=== PATIENT | female | born 1950 | race Caucasian/White ===

== ENCOUNTER 2022-04-20 10:08 | Outpatient (CLI) | payer MEDICARE, BC, SELFPAY | END 2022-04-20 10:09 | disposition home or self-care (01) | LOC: INJ CL 10:11 | PROVIDERS: PCP Family Medicine; Visit Provider Family Medicine | DX: M54.16 Radiculopathy, lumbar region (principal); M51.36 Other intervertebral disc degeneration, lumbar region | CPT/HCPCS: 62323; J0702; Q9966 ==

== ENCOUNTER 2022-05-10 12:09 | Outpatient (CLI) | payer MEDICARE, BC, SELFPAY | END 2022-05-10 12:10 | disposition home or self-care (01) | LOC: OP CLINIC 12:11 | PROVIDERS: PCP Family Medicine; Visit Provider Internal Medicine Gastroenterology | DX: R19.5 Other fecal abnormalities (principal); K63.5 Polyp of colon; K57.30 Diverticulosis of large intestine without perforation or abscess without bleeding | CPT/HCPCS: 45380; 88305; J2250; J3010 ==

== ENCOUNTER 2022-10-05 09:35 | Outpatient (CLI) | payer MEDICARE, BC, SELFPAY | END 2022-10-05 09:36 | disposition home or self-care (01) | LOC: INJ CL 09:37 | PROVIDERS: PCP Family Medicine; Visit Provider Family Medicine | DX: M54.16 Radiculopathy, lumbar region (principal); M51.36 Other intervertebral disc degeneration, lumbar region | CPT/HCPCS: 62323; J0702; Q9966 ==

== ENCOUNTER 2023-02-08 10:15 | Outpatient (CLI) | payer MEDICARE, BC, SELFPAY | END 2023-02-08 10:16 | disposition home or self-care (01) | LOC: INJ CL 10:16 | PROVIDERS: PCP Student in an Organized Health Care Education/Training Program; Visit Provider Family Medicine | DX: M16.11 Unilateral primary osteoarthritis, right hip (principal); M25.551 Pain in right hip | CPT/HCPCS: 20610; 77002; J0702; Q9966 ==

== ENCOUNTER 2023-03-14 06:34 | Outpatient (CLI) | payer MEDICARE, BC, SELFPAY ==
--- NOTE | 2023-03-14 07:37 | W.ANESCHARGE ---
Anesthesia Charges Start Date/Time Anesthesia Start Date: 03/14/23 Anesthesia Start Time: 07:11 Stop Date/Time Anesthesia Stop Date: 03/14/23 Anesthesia Stop Time: 07:33 Summary Extremes of Age - Over 70 or under 1: [employer]
--- NOTE | 2023-03-14 09:45 | W.ANESCHARGE ---
Anesthesia Charges Start Date/Time Anesthesia Start Date: 03/14/23 Anesthesia Start Time: 07:11 Stop Date/Time Anesthesia Stop Date: 03/14/23 Anesthesia Stop Time: 07:33 Summary Extremes of Age - Over 70 or under 1: MDA
== END 2023-03-14 06:35 | disposition home or self-care (01) ==
LOC: OP CLINIC 06:35
PROVIDERS: PCP Student in an Organized Health Care Education/Training Program; Visit Provider Internal Medicine Gastroenterology
DX: R10.13 Epigastric pain (principal); K21.9 Gastro-esophageal reflux disease without esophagitis; K31.89 Other diseases of stomach and duodenum
CPT/HCPCS: 00731; 43239; 88305; 99100; J2704; J3490

== ENCOUNTER 2023-03-29 13:13 | Outpatient (CLI) | payer MEDICARE, BC, SELFPAY | END 2023-03-29 13:14 | disposition home or self-care (01) | LOC: INJ CL 13:14 | PROVIDERS: PCP Student in an Organized Health Care Education/Training Program; Visit Provider Family Medicine | DX: M51.36 Other intervertebral disc degeneration, lumbar region (principal); M54.16 Radiculopathy, lumbar region | CPT/HCPCS: 62323; J0702; Q9966 ==

== ENCOUNTER 2023-04-17 12:31 | Emergency (ER) | payer MEDICARE, BC, SELFPAY ==
[2023-04-17 12:52] VITALS: BP 146/80; PULSE 76; RESP 16; TEMP 37.1; O2SAT 95; BMI 43.6
--- NOTE | 2023-04-17 13:02 | ED_ITS ---
HPI - General Adult General Time Seen by Provider: 13:02 Date Seen: 04/17/23 Chief complaint: Cough Stated complaint: Covid+, congestion Time Seen by Provider: 04/17/23 12:53 Source: patient and RN notes reviewed Mode of arrival: ambulatory Limitations: no limitations History of Present Illness HPI narrative: 72-year-old female is coming into the ER requesting packs of it. She tested positive at home today. She started with some sinus congestion and symptoms yesterday. Cough started today. She has felt hot but no temperature noted. No nausea vomiting or diarrhea. Her throat is slightly irritated from coughing. She does have underlying asthma, she states her lungs are bad. Grand kids were sick with colds, she did not think much of it until she tested positive. She does have her albuterol inhaler which she can use at home. She is on 2 blood pressure medicines which appear to be lisinopril and metoprolol. She takes Singulair at night for her asthma. She is also on naproxen for her back and uses omeprazole. She had called into the ER requesting Paxil bed, she was appropriately told by nursing staff that she needed to be seen, we could not do over the phone medicine. Nursing staff did advise her that she could try her clinic on-call, did not ask her she did this. We are happy to evaluate her and get her treated for COVID. We have reviewed if she cannot take Paxlovid due to any drug interactions or renal disease, that we can consider an use remdesivir. She is only on day 2 of symptoms. Related Data Home Medications Medication Instructions Recorded Confirmed lisinopril 30 mg tablet 30 mg PO DAILY 04/17/23 04/17/23 metoprolol succinate 25 mg 25 mg PO DAILY 04/17/23 04/17/23 tablet,extended release 24 hr montelukast 10 mg tablet 10 mg PO QPM 04/17/23 04/17/23 naproxen 500 mg tablet 500 mg PO DAILY PRN 04/17/23 04/17/23 omeprazole 20 mg capsule,delayed 20 mg PO DAILY 04/17/23 04/17/23 release Previous Rx's Medication Instructions Recorded benzonatate 100 mg capsule 100 mg PO BID-TID PRN cough #30 04/17/23 caps nirmatrelvir 150 mg-ritonavir 100 See Rx Instructions PO .COMPLEX 04/17/23 mg tablets in a dose pack #20 ea (Paxlovid) Allergies Allergy/AdvReac Type Severity Reaction Status Date / Time acetone Allergy Verified 04/17/23 12:50 Review of Systems Status of ROS: Reports: 6 or more systems reviewed and unremarkable except as noted in History and below PFSH PFSH Social History Smoking Status: Never smoker Do you use any of these nicotine containing products: None Second hand tobacco smoke exposure: No How often do you have a drink containing alcohol: never AUDIT-C Alcohol total score: 0 Non-prescribed substance use: denies use service: No Exam Const: Vital Signs, click to edit/add: Vital Signs - 24 hr 04/17/23 12:52 04/17/23 13:30 04/17/23 13:34 Temperature 98.7 F Pulse Rate [Pulse Oximeter] 76 77 Respiratory Rate 16 20 Blood Pressure [Ri ght Upper Arm] 146/80 H Pulse Oximetry 95 9 L 95 Oxygen Delivery Me thod Room Air Room Air Patient is alert, interactive, does have some audible nasal congestion. Is still able to speak in complete sentences, no voice hoarseness. She did cough once while I was in with her. Sclera clear, conjugate gaze, pupils are equal r ound reactive. Neck is supple, no cervical adenopathy. Lungs are clear, good air entry, no wheezing or crackles. CV regular rate and rhythm, no murmur, normal S1-S2, no S3-S4. Patient does have obesity. Documenting provider has reviewed patient's vital signs: yes Course Course ED Course: This is a patient with a home positive test for COVID today. We are obtaining a basic metabolic panel to look at her kidney function. Will get her appropriately treated as discussed above. Will monitor on pulse oximetry here to make sure she is not hypoxic. When I was with her, had no evidence of any hypoxia. She is only on day 2 of symptoms, lungs are clear, do not feel that any chest x-rays going to change our management at this time nor any labs outside of the basic metabolic panel. Did review with her that we do not typically recommend steroids right away with COVID unless patients are hypoxic. There are studies and data to suggest that steroids before hypoxia can worsen the COVID course. Reevaluation(s) Time of Reevaluation #1: 13:56 Reevaluation #1: Patient's medications were checked in the [facility] medication COVID website. There are no concerning interactions. Her kidney function would have her at the renally dosed Paxlovid. Her pharmacy is open till 5:00 p.m.. We will send this in for her. She is updated of these findings. She has used this medicine once before, states was a lifesaver for her, was actually doing worse than she is now and had significant improvement with that. She remembers the metallic taste, had no other problems with it. She is also requesting Tessalon Perles which was sent in for her. Vital Signs Vital signs: Initial Vital Signs Temperature 98.7 F 04/17/23 12:52 Temperature Source Temporal Artery Scan 04/17/23 12:52 Pulse Rate 76 04/17/23 12:52 Pulse Rhythm Regular 04/17/23 12:52 Pulse Strength 3+ Normal 04/17/23 12:52 Respiratory Rate 16 04/17/23 12:52 Blood Pressure 146/80 H 04/17/23 12:52 Blood Pressure Mean 102 04/17/23 12:52 Blood Pressure Position Sitting 04/17/23 12:52 Pulse Oximetry 95 04/17/23 12:52 Oxygen Delivery Method Room Air 04/17/23 12:52 Vital Signs Temperature 98.7 F 04/17/23 12:52 Pulse Rate 76 04/17/23 12:52 Respiratory Rate 16 04/17/23 12:52 Blood Pressure 146/80 H 04/17/23 12:52 Pulse Oximetry 95 04/17/23 12:52 Oxygen Delivery Method Room Air 04/17/23 12:52 Temperature 98.7 F 04/17/23 12:52 Pulse Rate 77 04/17/23 13:34 Respiratory Rate 20 04/17/23 13:34 Blood Pressure 146/80 H 04/17/23 12:52 Pulse Oximetry 95 04/17/23 13:34 Oxygen Delivery Method Room Air 04/17/23 13:34 Medical Decision Making Lab Data Labs: Lab Results 04/17/23 Range/Units 13:15 Sodium 136 (135-149) mmol/L Potassium 3.8 (3.6-5.1) mmol/L Chloride 101 (96-114) mmol/L Carbon Dioxide 29 (20-32) mmol/L Anion Gap 6 L (7-15) mEq/L BUN 12 (7-30) mg/dL Creatinine 0.6 (0.5-1.5) mg/dL Estimated Creat Clear 46.20 Estimated GFR 94 ml/min Glucose 120 H (60-115) mg/dL Calcium 8.9 (8.4-10.6) mg/dL Discharge Plan Discharge Clinical Impression: COVID-19 Patient Disposition: Home, Self-Care Condition: Stable Instructions: COVID-19 (Coronavirus Disease 2019) (ED), COVID-19: Slow the Coronavirus Spread (ED), How to Recover from COVID-19 at Home (ED) Additional Instructions: Start Paxlovid today and take as prescribed. Can use lozenges or hard candy to help with the metallic taste from the medicine. If you experience significant nausea vomiting or diarrhea with the medicine, contact her primary clinic for further recommendations. Need to quarantine from COVID per CDC guidelines. If at any point you are worsening with difficulty breathing, shortness of breath, chest pain or other concerning symptoms to you, do recommend re-evaluation. Activity Level: Activity as Tolerated Prescriptions: New Paxlovid 150-100 mg tablets,dose pack See Rx Instructions .ROUTE .COMPLEX Qty: 20 0RF Rx Instructions: orally per package directions benzonatate 100 mg capsule 100 mg PO BID-TID PRN (Reason: cough) Qty: 30 0RF No Action lisinopril 30 mg tablet 30 mg PO DAILY omeprazole 20 mg capsule,delayed release(DR/EC) 20 mg PO DAILY montelukast 10 mg tablet 10 mg PO QPM metoprolol succinate 25 mg tablet extended release 24 hr 25 mg PO DAILY naproxen 500 mg tablet 500 mg PO DAILY PRN Follow Up/Referrals: MARIS HANDY DO [Primary Care Provider] - Stand Alone Forms: [employer] Info Instructions
[2023-04-17 13:30] VITALS: O2SAT 9
[2023-04-17 13:34] VITALS: PULSE 77; RESP 20; O2SAT 95
[2023-04-17 13:42] LABS: Chloride* 101 mmol/L (96-114); Potassium* 3.8 mmol/L (3.6-5.1); Sodium* 136 mmol/L (135-149)
[2023-04-17 13:45] LABS: Creatinine* 0.6 mg/dL (0.5-1.5); Estimated Glomerular Filt Rate 94 ml/min
[2023-04-17 13:46] LABS: Anion Gap 6 mEq/L (7-15); Blood Urea Nitrogen* 12 mg/dL (7-30); Calcium* 8.9 mg/dL (8.4-10.6); Carbon Dioxide* 29 mmol/L (20-32); Glucose* 120 mg/dL (60-115)
--- NOTE | 2023-04-17 14:24 | PC.NURSE ---
Prescription called into [facility] for the renal dosed paxlovid.
== END 2023-04-17 14:25 | disposition home or self-care (01) ==
PROVIDERS: Emergency Provider Family Medicine; PCP Student in an Organized Health Care Education/Training Program
DX: U07.1 COVID-19 (principal)
CPT/HCPCS: 36415; 80048; 94761; 99283

== ENCOUNTER 2023-07-05 07:33 | Outpatient (CLI) | payer MEDICARE, BC, SELFPAY | END 2023-07-05 07:34 | disposition home or self-care (01) | LOC: RAD 07:34 → INJ CL 07:34 | PROVIDERS: PCP Student in an Organized Health Care Education/Training Program; Visit Provider Family Medicine | DX: M51.36 Other intervertebral disc degeneration, lumbar region (principal); M54.16 Radiculopathy, lumbar region | CPT/HCPCS: 62323; J0702; Q9966 ==

== ENCOUNTER 2023-10-17 17:16 | Outpatient (CLI) | payer MEDICARE, BC, SELFPAY ==
--- NOTE | 2023-10-17 17:30 | MR_ITS ---
[address] [address] Phone:?[phone] Fax:?[phone] Referring Physician Information: Khadijah Toussaint [address] [facility] [address] Phone:?[phone] Fax:?[phone] Patient:?Destiney Stephens D.O.B:?[id number] Sex:?Female Phone:?[phone] [facility] MRN:?[id number] Exam Date:?10/17/2023 EXAM: MRI of the RIGHT KNEE, without contrast CLINICAL: Right knee pain. Evaluate for medial meniscal tear. COMPARISONS: X-rays dated 10/10/2023. TECHNICAL: Multiplanar multisequence MRI of the right knee was obtained. SEDATION: None. CONTRAST: None. FINDINGS: Evaluation of the obtained sequences is somewhat limited by artifact. Ligaments: ACL: Intact and unremarkable. PCL: There is mild partial tearing of the PCL as seen on axial series 4 images 20-22, without evidence of complete disruption. MCL: There is mild soft tissue edema about the MCL which is likely reactive to the underlying medial meniscal pathology. MCL otherwise appears intact. LCL: Intact and unremarkable. Posterolateral corner: Popliteus, biceps femoris, iliotibial band, and the popliteofibular ligament appear intact. Posteromedial corner: Semimembranosus, pes anserine tendons and posterior oblique ligament appear intact. Extensor mechanism: Patellar tendon: Intact, without tendinopathy. Quadriceps tendon: Intact, without tendinopathy. Retinacula: Medial and lateral retinacula are intact. Fat pads: Unremarkable infrapatellar Hoffa's, quadriceps and prefemoral fat pads. Patellofemoral joint: Patella: Grade 2 and 3 chondral loss is seen to involve the patella. Trochlea: No significant chondromalacia. Medial compartment: Medial meniscus: Horizontal tearing is seen to involve the posterior horn on sagittal series 9 images 20-22 with complex tearing seen to involve the body segment on coronal series 7 images 18-20. There is inferior displacement of torn body segment meniscal tissue along the peripheral undersurface of the body segment into the medial gutter as seen on coronal series 7 images 18-20. Medial cartilage: There is mild chondral thinning involving the medial compartment. No full-thickness chondral defects. Lateral compartment: Lateral meniscus: There is complex tearing involving the posterior horn on sagittal series 9 images 9-10 with ill-defined fraying/complex tearing involving the posterior root on sagittal series 9 image 12-14. No meniscal displacement. Lateral cartilage: There is heterogeneity of the lateral tibial plateau cartilage. Otherwise mild chondral thinning involving the lateral compartment. Knee joint: Effusion: Small right knee effusion. Intra-articular bodies:?No convincing bodies identified. Popliteal cyst: Small, with leakage of fluid extending along the periphery of the medial gastrocnemius muscle. Bones: No suspicious bone marrow signal alteration or fracture line. Small degenerative cystic change is seen to involve the posterior central tibial plateau. IMPRESSION: 1. Tearing of the medial and lateral menisci as above, with displacement of torn meniscal tissue along the peripheral undersurface of the body segment medial meniscus. 2. Mild partial tearing of the PCL. 3. Grade 2 and 3 chondral loss involving the patella. Mild chondral thinning involving the medial and lateral compartments. 4. Small joint effusion. 5. Small leaking popliteal cyst. JCZ Electronically signed on 10/18/2023 9:14:00 AM by Rigoberto Lee D.O.
== END 2023-10-17 17:17 | disposition home or self-care (01) ==
LOC: MRI 17:17
PROVIDERS: PCP Student in an Organized Health Care Education/Training Program; Visit Provider Physician Assistant
DX: M25.561 Pain in right knee (principal); S83.241A Other tear of medial meniscus, current injury, right knee, initial encounter; S83.261A Peripheral tear of lateral meniscus, current injury, right knee, initial encounter; M22.41 Chondromalacia patellae, right knee; M25.461 Effusion, right knee; M71.21 Synovial cyst of popliteal space [Baker], right knee
CPT/HCPCS: 73721

== ENCOUNTER 2024-03-16 08:35 | Outpatient (CLI) | payer MEDICARE, BC, SELFPAY | END 2024-03-16 08:36 | disposition home or self-care (01) | LOC: INJ CL 08:35 | PROVIDERS: PCP Student in an Organized Health Care Education/Training Program; Visit Provider Family Medicine | DX: M54.16 Radiculopathy, lumbar region (principal); M51.369 Other intervertebral disc degeneration, lumbar region without mention of lumbar back pain or lower extremity pain | CPT/HCPCS: 62323; J0702; Q9966 ==

== ENCOUNTER 2024-08-14 10:41 | Outpatient (CLI) | payer MEDICARE, BC, SELFPAY | END 2024-08-14 10:42 | disposition home or self-care (01) | LOC: INJ CL 10:43 | PROVIDERS: PCP Student in an Organized Health Care Education/Training Program; Visit Provider Family Medicine | DX: M54.16 Radiculopathy, lumbar region (principal); M48.062 Spinal stenosis, lumbar region with neurogenic claudication | CPT/HCPCS: 62323; J0702; Q9966 ==

== ENCOUNTER 2024-09-05 12:33 | Emergency (ER) | payer MEDICARE, BC, SELFPAY ==
--- OUTSIDE RECORDS SUMMARY | 2024-09-05 12:34 | XMS_ITS | Clinical Summary ---
Author Organization [facility] Address [address] [place] [address] Care Team Providers Care Spudder Name Role Phone Nick Finch MD Unavailable [phone] Ananda Aj DO Primary Care Provider [phone] Allergies Active Allergy Reactions Criticality Noted Date Comments Acetone 08/18/2006 Medications albuterol-iprat ropium (DUONEB) (2.5-0.5 mg) in 3 mL NEBULIZATION solutionIndicat ions:Exacerbati on of asthma, unspecified asthma severity, unspecified whether persistent (HC) Inhale 3 mL via a nebulizer every 6 hours if needed for Shortness Of Breath or Wheezing 1st choice (wheezing/cough) . 90 mL 11 024 Active albuterol HFA 90 mcg/actuation inhalerIndicati ons:Exacerbatio n of asthma, unspecified asthma severity, unspecified whether persistent (HC) INHALE 2 PUFFS BY MOUTH EVERY 4 HOURS NEEDED FOR SHORTNESS OF BREATH 9 g 025 Active naproxen 500 mg tabletIndicatio ns:Stenosis of lateral recess of lumbar spine Take 1 Tablet (500 mg) by mouth two times daily with meals. As needed./ 60 Tablet 1 025 Active sertraline 50 mg tabletIndicatio ns:Chronic insomnia Take 1 Tablet (50 mg) by mouth once daily. 30 Tablet 3 025 Active fluticasone propion-salmete roL (Wixela Inhub) 250-50 mcg/Dose diskus inhalerIndicati ons:Mild intermittent asthma without complication (HC) Inhale 1 Puff by mouth two times daily. 60 Each 025 Active lisinopriL 30 mg tabletIndicatio ns:HTN (hypertension) Take 1 Tablet (30 mg) by mouth once daily. 90 Tablet 3 025 Active metoprolol succinate 25 mg Sustained-Relea se tabletIndicatio ns:HTN (hypertension), LVH (left ventricular hypertrophy) Take 1 Tablet (25 mg) by mouth once daily. 90 Tablet 3 025 Active montelukast 10 mg tabletIndicatio ns:Mild persistent asthma with exacerbation (HC) Take 1 Tablet (10 mg) by mouth at bedtime. 90 Tablet 3 025 Active rosuvastatin 10 mg tabletIndicatio ns:Type 2 diabetes mellitus without complication, without long-term current use of insulin (HC) Take 1 Tablet (10 mg) by mouth at bedtime. 90 Tablet 3 025 Active nystatin 100,000 unit/mL suspensionIndic ations:Oral candidiasis Swish and swallow 5 mL (500,000 units) by mouth four times daily. 280 mL 025 Active omeprazole 40 mg Delayed-Release capsuleIndicati ons:Gastric reflux TAKE 1 CAPSULE BY MOUTH ONCE DAILY BEFORE A MEAL 90 Capsule 3 025 Active fluticasone (50 mcg per actuation) nasal solution (FLONASE)Indica tions:Chronic sinusitis, unspecified location Inhale 2 Sprays to both nostrils once daily. 16 g 024 2024 Discontinued(* Patient states no longer taking) sertraline (ZOLOFT) 50 mg tabletIndicatio ns:Chronic insomnia Take 1 Tablet (50 mg) by mouth once daily. 30 Tablet 3 024 2024 Discontinued(R eorder (E-cancel not sent)) HYDROcodone-sierra taminophen (5-325 mg/tablet)Indic ations:Lumbar disc herniation Take 1 Tablet by mouth 3 times daily if needed for Pain. Max acetaminophen dose: 4000 mg in 24 hrs. 20 Tablet 025 2024 Discontinued(* Patient states no longer taking) omeprazole (PRILOSEC) 40 mg Delayed-Release capsuleIndicati ons:Gastric reflux TAKE 1 CAPSULE BY MOUTH ONCE DAILY BEFORE A MEAL 90 Capsule 025 2024 Discontinued benzonatate (TESSALON) 200 mg capsuleIndicati ons:Productive cough Take 1 Capsule (200 mg) by mouth 3 times daily if needed for Cough. 30 Capsule 025 2024 Discontinued(* Patient states no longer taking) lisinopriL 30 mg tabletIndicatio ns:HTN (hypertension) Take 1 tablet by mouth once daily 30 Tablet 025 2024 Discontinued(R eorder (E-cancel not sent)) montelukast 10 mg tabletIndicatio ns:Mild persistent asthma with exacerbation (HC) TAKE 1 TABLET BY MOUTH AT BEDTIME 30 Tablet 025 2024 Discontinued(R eorder (E-cancel not sent)) metoprolol succinate 25 mg Sustained-Relea se tabletIndicatio ns:HTN (hypertension), LVH (left ventricular hypertrophy) Take 1 tablet by mouth once daily 30 Tablet 025 2024 Discontinued(R eorder (E-cancel not sent)) Active Problems Problem Noted Date Diagnosed Date Morbid obesity 08/23/2024 Overview (08/23/2024): AI Summary: As of 05/23/24: The patient has a history of morbid obesity, with a BMI in the range of 40.0-49.9, documented since 11/22/2016. Multiple notes mention the patient's obesity and its association with mild abdominal discomfort. Management has included encouragement of exercise and diet, referral to a weight management program, and discussion of medication options for weight loss. 09/14/23: BMI 43.44 kg/m2 09/14/23: Wt 133.5 kg Recent encounter dx: 06/19/23: Support OP Encounter - [facility] 06/08/23: Appointment - [facility] 12/08/22: Appointment - [facility] 08/10/22: Appointment - [facility] 02/04/22: Appointment - [facility] Recent notes: 05/23/24: Progress Notes by Virginia Wagner, CHRISTA ... [+] ? Morbid obesity with BMI of 40.0-44.9, adult (HC) 11/22/2016 07/07/23: ED Provider Note by Leandro Beth DO ... [+] Morbid obesity with BMI of 40.0-44.9, adult (HC) 06/08/23: Progress Notes by Ananda Aj DO ... [+] Morbid obesity with BMI of 40.0-44.9, adult (HC) E66.01 02/21/23: H&P - Preoperative Consultation by DO Lma Linares.. [+] ? Morbid obesity with BMI of 40.0-44.9, adult (HC) E66.01, Z68.41 12/08/22: Progress Notes by Ananda Aj DO ... [+] Morbid obesity with BMI of 40.0-44.9, adult (HC) E66.01 AMB CONSULT TO [facility] [employer] WE[employer]NAGEMENT --select region-- Depression, recurrent 08/10/2022 Colon polyp 05/13/2022 Overview (05/13/2022): Colonoscopy 04/2022 TA, repeat in 7 years Prediabetes 02/04/2022 Pulmonary nodules 01/14/2022 Overview (02/04/2022): CT 12/2021 - stable 6.7mm nodule - follow up advised 06/2023 Incidental finding Cardiac calcium scan 08/2021 Degenerative disc disease, lumbar 10/02/2020 Overview (10/02/2020): MRI 2016: L1-2 disc protrusion L4-5 facet arthropathy [facility] 2017 Morbid obesity with BMI of 40.0-44.9, adult 10/25 Mild intermittent asthma without complication Overview (08/10/2017): Improved after removing carpets from home and having air ducts cleaned Screen for colon cancer 01/12/2011 Overview (01/12/2011): Colonoscopy 12/2010 normal repeat in 10 years HTN (hypertension) 03/12/2008 Overview (09/24/2019): Leg swelling on amlodipine Stomach pain on HCTZ Myalgia and myositis, unspecified 08/18/2006 Overview (08/18/2006): fibromyalgia Encounters Date Type Department Care Team Description 09/05/2024 Nurse Triage [facility] [address] [place] [address] Ananda Aj DO Shoulder Pain/problem (right) 08/30/[address] [address] Ananda Aj DO Refill Request (Omeprazole) 08/29/2024 2:40 PM CDT Office Visit [address] [address] Nathalie Tran MD Concerns (tongue swelling/Started new medication tuesday - dryness and swelling started tuesday ); Medication Management (Started Rosuvostatin and fluticasone propionate and salmeterol inhalor. ) 08/29/2024 Travel 08/29/2024 Nurse Triage [facility] [address] [place] [address] Ananda Aj DO Mouth Problem (Dry mouth, white tongue, tongue swelling, mouth pain) 08/23/2024 1:15 PM CDT Office Visit [address] [address] Ananda Aj DO Medicare ANNUAL (subsequent) Visit (74 year old ); Asthma (Had COVID-19 in Apr and since has needed inhaler more then before illness ); Weight (Would like to meet with healthy weight management ) 08/23/[address] [address] Ananda Aj DO Results 08/23/2024 Travel 08/21/2024 Travel 08/16/2024 Refill [facility] [address] [place] [address] Los Meza MD Refill Request (Sertraline 50mg tab) 08/14/2024 11:20 AM CDT Office Visit [facility] at [facility] [address] [place] [address] Nick Finch MD Procedure (L4-5 ILESI) 08/13/2024 Travel 07/28/2024 Refill [facility] [address] [place] [address] Ananda Aj DO Refill Request (Montelukast, Metoprolol Succinate) 07/25/2024 Medical Messaging [facility] [address] [place] [address] Nick Finch MD back shot 07/23/2024 Refill [facility] [address] [place] [address] Ananda Aj DO Refill Request (Lisinopril) 07/12/2024 11:20 AM CDT Office Visit [facility] [address] [place] [address] Nick Finch MD Musculoskeletal Problem (Follow up right knee pain wanting Synvisc one injection ) 07/12/2024 Travel 07/10/2024 Refill [facility] [address] [place] [address] Ananda Aj DO Refill Request (Albuterol Hfa) 07/07/2024 Travel 06/28/2024 Telephone [facility] [address] [place] [address] Nick Finch MD Results 06/25/2024 1:40 PM GRASS FARMER - 06/25/2024 11:59 PM GRASS F[employer]ER Hospital Encounter [facility] [address] [place] [address] Nick Finch MD Lumbar disc herniation; Lumbar radiculopathy; Spinal stenosis of lumbar region with neurogenic claudication 06/25/2024 Travel 06/23/2024 Refill [facility] [address] [facility] [address] Ananda Aj, DO Refill Request (Montelukast, Metoprolol Succinate) 06/09/2024 Refill [facility] [address] [facility] [address] Ananda Aj, DO Refill Request (Lisinopril) from Last 3 Months Immunizations Immunization Administration Dates Next Due COVID-19 vaccine (Bit9 30mcg/0.3mL) P F, MDV 07/15/2020,06/24/2020 Influenza, High-dose Quadrivalent Inactivated ,02/25/2022 Influenza, IIV3 (Age >=3 years) 02/02/2008,03/08 Pneumococcal Poly,23-Valent (Pneumovax) 08/09/19 18 Pneumococcal conj 13-Valent (Prevnar 13) 016 RSV, Recombinant ADJ Reconst ituted (Arexvy 120MCG/0.5mL) 04/30/2023 Td (Age >=7 Years) 09/27/1996 Tdap 01/24/2023,02/02/2008 Zoster (Shingrix-RZV, recombinant) 01/24/2023, Family History Medical History Relation Name Comments Good Health Brother Cancer Father lung/brain Hyperlipidemia Father high chol Stroke Father Diabetes Mother Heart failure Mother Other Mother migraines Cancer-breast Other Paternal cousi ns Stroke Paternal Grandfather Cancer-ovarian No Family History Relation Name Status Comments Brother Father Mother Other Paternal Grandfather Social History Tobacco Use Types Packs/Day Years Used Date Smoking Tobacco: Never Smokeless Tobacco: Never Tobacco Cessation:Counseling Given: Yes Alcohol Use Standard Drinks/Week Comments Not Currently 0 (1 standard drink = 0.6 oz pur e alcohol) 7 drinks per year PHQ-2 Answer Date Recorded PHQ-2 TOTAL SCORE 0 08/23/2024 Social Connections Answer Date Recorded Do you often feel lonely or isolated from those around you? 0 08/21/2024 Financial Resource Strain Answer Date R ecorded Difficulty of Paying Living Expenses 3 08/21/2024 Difficulty of Paying Living Expenses Not on file 08/21/2024 Food Insecurity Answer Date Recorded Do you worry your food will run out before you are able to buy more? 1 08/21/2024 Transportation Needs Answer Date Record ed Does lack of transportation keep you from medica l appointments? 1 08/21/2024 Does lack of transportation keep you from work, meetings or getting things that you need? 1 08/21/2024 Housing Stability Answer Date Recorded What is your housing situation today? 1 08/21/2024 Interpersonal Safety Answer Date Record ed Are you being hit, kicked, p ushed or yelled at (see row info)? No 07/07/2023 Interpersonal Safety Abuse 12 - 18 Not on file 07/07/2023 Interpersonal Safety Ambulatory Vulnerability No t on file 07/07/2023 Utilities Answer Date Recorded Do you have trouble paying f or utilities (for example, heat, electricity, water, phone)? 1 08/21/2024 Comments No Sex and Gender Information Value Date Recorded Sex Assigned at Female 02/07/2021 10:17 AM CDT Legal Sex Female 5:25 AM GRASS FARMER Gender Identity Female 02/07/2021 10:17 AM CDT Sexual Orientation Straight 02/07/2021 10 :18 AM CDT Occupation Industry Job Start Date Job End Date Not on file Not on file Not on file Not on file Obstetrics History Para Term AB IAB SAB Ectopic Multiple Livin g Live Births 3 3 3 3 Date Outcome GA Total Labor Labor/2nd/3rd Weight Sex Type Anes PTL Marissa A1 A5 Name Clin Term Term Term Last Filed Vital Signs Vital Sign Reading Time Taken Comments Blood Pressure 133/79 08/29/2024 2:49 PM CDT Pulse 77 08/29/2024 2:49 PM CDT Temperature 36.4 C (97.5 F) 07/12/2024 11:22 AM CDT Respiratory Rate 16 07/07/2023 2:48 AM CDT Oxygen Saturation 97% 08/29/2024 2:49 PM CDT Inhaled Oxygen Concentration - - Weight 137.4 kg (303 lb) 08/23/2024 1:23 PM CDT Height 168.5 cm (5' 6.34) 08/23/2024 1:23 PM CD T Body Mass Index 48.41 08/23/2024 1:23 PM CDT Plan of Treatment Upcoming Encounters Date Type Department Care Team (Late st Contact Info) Description 09/13/2024 1:00 PM CDT Office Visit [facility] [address] [facility] [place] [address] Nick Finch MD [address] [place] [address] 09/20/2024 1:15 PM CDT Office Visit [facility] [address] [place] [address] Ananda Aj DO [address] [place] [address] Health Maintenance Due Date Last Done Comments COVID-19 vaccine series (2023- season) 2024 02/23/2024, 09/17/2023, 04/30/2023, Additional history exists Influenza Vaccine (Season Ended) 2024 02/02/20 08, 03/08/2006 BMI (ht and wt on same day) for age 18+ 08/23/2025 08/23/2024, 09/14/2023, 02/21/2023, Additional history exists Depression screening for age 12+ 08/23/2025 08/24/19 Medicare Wellness for age 65+ 08/24/2025, 01/14/2022, 10/22/2020, Additional history exists Tetanus booster 01/24/2033 01/24/2023, 01/23, 09/27/1996 Pneumococcal series for age 50+ Completed 8, 03/10/2016 DEXA/DXA scan for age 65+ Completed 08/25/2017, Hepatitis C screening for ag e 18-79 Completed 02/22/2019 Tdap Completed 01/24/2023, 02/02/2008 Zoster (shingles) series for age 50+ Completed 01/24/2023, 09/10/2022 RSV vaccine for adults or Completed 04/30/2023 Procedures Procedure Name Priority Date/Time Associated Diagnosis Comments BASIC METABOLIC PANEL Routine 08/23/2024 2:17 PM CDT HTN (hypertension) LIPID PANEL W REFLEX MEASURED LDL Routine 08/23/2024 2:17 PM CDT Mixed hyperlipidemia TSH WITH REFLEX Routine 08/23/2024 2:17 PM CDT Morbid obesity with BMI of 40.0-44.9, adult (HC) Abnormal weight gain HEMOGLOBIN A1C MONITORING (POCT) Routine 08/23/2024 2:16 PM CDT Prediabetes AMB EPIDURAL STEROID INJECTION Routine 08/14/2024 8:01 AM CDT Lumbar radiculopathy Spinal stenosis of lumbar region with neurogenic claudication Lumbar disc herniation SD NJX DX/THER SBST INTRLMNR LMBR/SAC W/IMG GDN Routine 08/14/2024 12:00 AM CDT Lumbar radiculopathy Spinal stenosis of lumbar region with neurogenic claudication Lumbar disc herniation MR SPINE LUMBAR WO Routine 06/25/2024 2: 12 PM GRASS FARMER Lumbar disc herniation Lumbar radiculopathy Spinal stenosis of lumbar region with neurogenic claudication ANTI HCV Routine 02/22/2019 9:30 AM CDT Need for hepatitis C screening test XR DXA BONE DENSITY 2 SITES AXIAL Routine 08/25/2017 10:54 AM CDT Menopause from Last 3 Months or Most Recently Relevant to Health Maintenance Results * TSH WITH REFLEX (08/23/2024 2:17 PM CDT) TSH W/REFLEX TO FT4 2.12 0.40 - 4.50 mIU/L [facility] Blood BLOOD SPECIMEN / Unknown 08/23/2024 2:17 PM CDT 08/23/2024 2:18 PM CDT us Adei Jean Marie DO CHEMISTRY Final Result [facility] [address] [place] [address], [facility] [address] [place] [address] * (ABNORMAL) LIPID PANEL W REFLEX MEASURED LDL (08/23/2024 2:17 PM CDT) [facility] Signature CHOLESTEROL, TOTAL 201(H) <200 mg/dL [facility] HDL CHOLESTEROL 65 > OR = 50 mg/dL [facility] TRIGLYCERIDES 140 <150 mg/dL [facility] LDL-CHOLESTEROL 111(H) mg/dL (calc) [facility] Comment: Reference range: <100 Desirable range <100 mg/dL for primary prevention; <70 mg/dL for patients with CHD or diabetic patients with > or = 2 CHD risk factors. LDL-C is now calculated using the David calculation, which is a validated novel method providing better accuracy than the Friedewald equation in the estimation of LDL-C. Rodri CASILLAS et al. СВЕТЛАНА. 2013;310(19): 8753-7076 (http://education.[employer] (TEN)/faq/SYV163) CHOL/HDLC RATIO 3.1 <5.0 (calc) [email or web address] NON HDL CHOLESTEROL 136(H) <130 mg/dL (calc) [facility] Comment: For patients with diabetes plus 1 major ASCVD risk factor, treating to a non-HDL-C goal of <100 mg/dL (LDL-C of <70 mg/dL) is considered a therapeutic option. Blood BLOOD SPECIMEN / Unknown 08/23/2024 2:17 PM CDT 08/23/2024 2:18 PM CDT us Ananda Aj DO CHEMISTRY Final Result [facility] [address] [place] [address], [email or web address] [address] [place] [address] * (ABNORMAL) BASIC METABOLIC PANEL (08/23/2024 2:17 PM CDT) GLUCOSE 152(H) 65 - 99 mg/dL [facility] Comment: Fasting reference interval For someone without known diabetes, a glucose value >125 mg/dL indicates that they may have diabetes and this should be confirmed with a follow-up test. UREA NITROGEN (BUN) 19 7 - 25 mg/dL [facility] CREATININE 0.77 0.60 - 1.00 mg/dL [email or web address] EGFR 80 > OR = 60 mL/min/1. 73m2 [facility] BUN/CREATININE RATIO SEE NOTE: 6 - 22 (calc) [email or web address] Comment: Not Reported: BUN and Creatinine are within reference range. SODIUM 140 135 - 146 mmol/L [email or web address] POTASSIUM 4.8 3.5 - 5.3 mmol/L [facility] CHLORIDE 100 98 - 110 mmol/L [facility] CARBON DIOXIDE 31 20 - 32 mmol/L [email or web address] ELECTROLYTE BALANCE 9 7 - 17 mmol/L (calc) [email or web address] CALCIUM 10.3 8.6 - 10.4 mg/dL [facility] Blood BLOOD SPECIMEN / Unknown 08/23/2024 2:17 PM CDT 08/23/2024 2:18 PM CDT Ananda Aj DO CHEMISTRY Final Result [facility] [address] [place] [address], [facility] [address] [place] [address] * (ABNORMAL) POCT Hemoglobin A1C Monitoring (08/23/2024 2:16 PM CDT) Pathologist [facility] POC HEMOGLOBIN A1C 6.8(H) <6.0 % OF TOTAL HGB [facility] Comment: Any point of care results exhibiting inconsistency with the patient's clinical status should be repeated using a different testing method. Blood BLOOD SPECIMEN / Unknown 08/23/2024 2:16 PM CDT 08/23/2024 2:16 PM CDT Letiluann Villalobosjoaquín CHEMISTRY Final Result [facility] [address] [place] [address], [facility] [address] [place] [address] * SD NJX DX/THER SBST INTRLMNR LMBR/SAC W/IMG GDN (08/14/2024 12:00 AM CDT) Nick Finch MD PB - NERVOUS SYSTEM SERVIC ES Final Result * MR SPINE LUMBAR WO (06/25/2024 2:12 PM GRASS FARMER) Anatomical Region Laterality Modality Spine, LUMBAR SPINE Magnetic Res onance 06/25/2024 3:17 PM GRASS FARMER Impressions 06/25/2024 3:17 PM GRASS F[employer]ER 1. Normal alignment. No fractures. 2. At L1-2, disc degeneration. Small central disc extrusion. No spinal canal or neural foraminal narrowing. 3. At L4-5, mild narrowing of the spinal canal. 4. No spinal canal or neural foraminal narrowing at the remaining levels Dictated by Ruiz Hills MD @ 06/25/2024 3:17:52 PM (Electronically Signed) Narrative 06/25/2024 3:17 PM GRASS FARMER For Patients: As a result of the Century Cures Act, medical imaging exams and procedure reports are released immediately into your electronic medical record. You may view this report before your referring provider. If you have questions, please contact your health care provider. INDICATION: Lumbar radiculopathy. Spinal stenosis. COMPARISON: 11/13/2020. Technique Sagittal T1, T2, and STIR sequences. Axial T1 and T2 weighted sequences. FINDINGS: Normal vertebral body alignment. No fractures. No vertebral body loss of height. No evidence injury. No suspicious osseous lesions. Normal conus terminates at L1-2. T12-L1: No spinal canal or neural foraminal narrowing. L1-2: Disc degeneration. Small central disc extrusion measures approximately 4 mm in diameter with 5 mm of caudal migration. No narrowing of the spinal canal. No neural foraminal narrowing. L2-3: No spinal canal or neural foraminal narrowing. L3-4: Disc degeneration. No spinal canal or neural foraminal narrowing. L4-5: Disc degeneration posterior disc bulge. Mild narrowing of the spinal canal. No neural foraminal narrowing. L5-S1: No narrowing of the spinal canal. No impingement of the traversing S1 nerve roots. No neural foraminal narrowing. Mild facet arthropathy. Normal visualized SI joints. Normal paraspinal soft tissues. Procedure Note Ruiz Hills MD, PhD - 06/25/2024 For Patients: As a result of the Cures Act, medical imagingexams and procedure reports are released immediately into your electronicmedical record. You may view this report before your referring provider.If you have questions, please contact your health care provider. INDICATION: Lumbar radiculopathy. Spinal stenosis. COMPARISON: 11/13/2020. Technique Sagittal T1, T2, and STIR sequences. Axial T1 and T2 weightedsequences. FINDINGS: Normal vertebral body alignment. No fractures. No vertebral body loss ofheight. No evidence injury. No suspicious osseous lesions. Normal conusterminates at L1-2. T12-L1: No spinal canal or neural foraminal narrowing. L1-2: Disc degeneration. Small central disc extrusion measuresapproximately 4 mm in diameter with 5 mm of caudal migration. No narrowingof the spinal canal. No neural foraminal narrowing. L2-3: No spinal canal or neural foraminal narrowing. L3-4: Disc degeneration. No spinal canal or neural foraminal narrowing. L4-5: Disc degeneration posterior disc bulge. Mild narrowing of the spinalcanal. No neural foraminal narrowing. L5-S1: No narrowing of the spinal canal. No impingement of the traversingS1 nerve roots. No neural foraminal narrowing. Mild facet arthropathy. Normal visualized SI joints. Normal paraspinal soft tissues. IMPRESSION: 1. Normal alignment. No fractures. 2. At L1-2, disc degeneration. Small central disc extrusion. No spinalcanal or neural foraminal narrowing. 3. At L4-5, mild narrowing of the spinal canal. 4. No spinal canal or neural foraminal narrowing at the remaining levels Dictated by Ruiz Hills MD @ 06/25/2024 3:17:52 PM (Electronically Signed) Nick Finch MD MR Final Resu lt * ANTI HCV (02/22/2019 9:30 AM CDT) HEPATITIS C ANTIBODY Non-React richard Non-React richard 02/22/2019 5:30 PM CDT [facility] Comment:Antibodies to HCV no t detected; does not exclude the possibility of exposure to HCV. Blood BLOOD SPECIMEN / Unknown Venipuncture / Unknown 02/22/2019 9:30 AM CDT 02/22/2019 9:36 AM CDT Natty King MD SEND OUTS Final Result [facility] [address] [place] [address], [place] * XR DXA BONE DENSITY 2 SITES AXIAL [[id number]] (08/25/2017 10:54 AM CDT) Anatomical Region Laterality Modality Spine, HIPS, HIPL, HIPR Other Natty King MD DEXA Final Result from Last 3 Months or Most Recently Relevant to Health Maintenance Insurance [employer] BLUE MR PB ONLY MEDICARE PART B HB ONLY [employer] BLUE HB ONLY MEDICARE PART A HB ONLY [facility] Digital [employer] Dialog Care Teams Spudder Relationship Specialty Start Date End Date Ananda Aj DO [address] [place] [address] PCP - General Family Practice 10/20/22 Nick Finch MD [address] [place] [address] Sports Medicine - Family Medicine 01/14/22
[2024-09-05 12:41] VITALS: BP 152/85; PULSE 72; RESP 18; TEMP 36.4; O2SAT 97; BMI 46.8
--- NOTE | 2024-09-05 13:16 | CRLHL7_ITS ---
For Patients: As a result of the Cures Act, medical imaging exams and procedure reports are released immediately into your electronic medical record. You may view this report before your referring provider. If you have questions, please contact your health care provider. Indication: Pain. No injury Technique: A total of three views of the right shoulder were acquired. Comparison: None Findings: Bones: Alignment is normal. No fractures or bone lesions. Joint spaces: Unremarkable. Soft tissues: There are findings of calcific tendinitis of the rotator cuff Impression: No acute fracture, dislocation or destructive process.Calcific tendinitis of the rotator cuff. Dictated by Nghia Magallon MD @ 09/05/2024 2:05:36 PM (Electronically Signed)
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
--- OUTSIDE RECORDS SUMMARY | 2024-09-05 13:58 | XMS_ITS | Clinical Summary ---
Author Organization [facility] Address [address] [place] [address] Care Team Providers Care Hand Printed Circuit Board Assembler Name Role Phone Nick Finch MD Unavailable [phone] Ananda Aj DO Primary Care Provider [phone] Allergies Active Allergy Reactions Criticality Noted Date [...] encounter dx: 06/19/23: Support OP Encounter - [facility] 06/08/23: Appointment - [facility] 12/08/22: Appointment - [facility] 08/10/22: Appointment - [facility] 02/04/22: Appointment - [facility] Recent notes: 05/23/24: Progress Notes by Virginia Wagner, CHRISTA ... [+] ? Morbid obesity with BMI of 40.0-44.9, adult (HC) 11/22/2016 07/07/23: ED Provider Note by Leandro Beth DO ... [+] Morbid obesity with BMI of 40.0-44.9, adult (HC) 06/08/23: Progress Notes by Ananad Aj DO ... [+] Morbid obesity with BMI of 40.0-44.9, adult (HC) E66.01 02/21/23: H&P - Preoperative Consultation by DO Lam Linares.. [+] ? Morbid obesity with BMI of 40.0-44.9, adult (HC) E66.01, Z68.41 12/08/22: Progress Notes by Ananda Aj DO ... [+] Morbid obesity with BMI of 40.0-44.9, adult (HC) E66.01 AMB CONSULT TO [facility] WEIGHT [facility]NAGEMENT --select region-- Depression, recurrent 08/10/2022 [...] Department Care Team Description 09/05/2024 Nurse Triage [facility] [address] [place] [address] Ananda Aj DO Shoulder Pain/problem (right) 08/30/[address] [address] Ananda Aj DO Refill Request (Omeprazole) 08/29/2024 2:40 PM CDT Office Visit [address] [address] Nathalie Tran MD Concerns (tongue swelling/Started new medication tuesday - dryness and swelling started tuesday ); Medication Management (Started Rosuvostatin and fluticasone propionate and salmeterol inhalor. ) 08/29/2024 Travel 08/29/2024 Nurse Triage [facility] [address] [place] [address] Ananda Aj DO Mouth Problem (Dry mouth, white tongue, tongue swelling, mouth pain) 08/23/2024 1:15 PM CDT Office Visit [address] [address] Ananda Aj DO Medicare ANNUAL (subsequent) Visit (74 year old ); Asthma (Had COVID-19 in Apr and since has needed inhaler more then before illness ); Weight (Would like to meet with healthy weight management ) 08/23/[address] [address] Ananda Aj DO Results 08/23/2024 Travel 08/21/2024 Travel 08/16/2024 Refill [facility] [address] [place] [address] Los Meza MD Refill Request (Sertraline 50mg tab) 08/14/2024 11:20 AM CDT Office Visit [facility] [address] [place] [address] Nick Finch MD Procedure (L4-5 ILESI) 08/13/2024 Travel 07/28/2024 Refill [facility] [address] [place] [address] Ananda Aj DO Refill Request (Montelukast, Metoprolol Succinate) 07/25/2024 Medical Messaging [facility] [address] [place] [address] Nick Finch MD back shot 07/23/2024 Refill [facility] [address] [place] [address] Ananda Aj DO Refill Request (Lisinopril) 07/12/2024 11:20 AM CDT Office Visit [facility] [address] [place] [address] Nick Finch MD Musculoskeletal Problem (Follow up right knee pain wanting Synvisc one injection ) 07/12/2024 Travel 07/10/2024 Refill [facility] [address] [place] [address] Ananda Aj DO Refill Request (Albuterol Hfa) 07/07/2024 Travel 06/28/2024 Telephone [facility] [address] [place] [address] Nick Finch MD Results 06/25/2024 1:40 PM BAND BOOKER - 06/25/2024 11:59 PM BAND BOOKER Hospital Encounter [facility] [address] [facility] [place] [address] Nick Finch MD Lumbar disc herniation; Lumbar radiculopathy; Spinal stenosis of lumbar region with neurogenic claudication 06/25/2024 Travel 06/23/2024 Refill [facility] [address] [facility] [address] Ananda Aj, DO Refill Request (Montelukast, Metoprolol Succinate) 06/09/2024 Refill [facility] [address] [facility] [address] Ananda Aj, DO Refill Request (Lisinopril) from Last 3 Months Immunizations Immunization Administration Dates Next Due COVID-19 vaccine ([employer] 30mcg/0.3mL) P F, MDV 07/15/2020,06/24/2020 Influenza, High-dose [...] AM CDT Legal Sex Female 5:25 AM BAND BOOKER Gender Identity Female 02/07/2021 10:17 AM CDT [...] Description 09/13/2024 1:00 PM CDT Office Visit [facility] [address] [place] [address] Nick Finch MD [address] [place] [address] 09/20/2024 1:15 PM CDT Office Visit [facility] [address] [place] [address] Ananda Aj DO [address] [place] [address] Health Maintenance Due Date Last Done Comments [...] region with neurogenic claudication Lumbar disc herniation [place] NJX DX/THER SBST INTRLMNR LMBR/SAC W/IMG GDN Routine 08/14/2024 12:00 AM CDT Lumbar radiculopathy Spinal stenosis of lumbar region with neurogenic claudication Lumbar disc herniation MR SPINE LUMBAR WO Routine 06/25/2024 2: 12 PM BAND BOOKER Lumbar disc herniation Lumbar radiculopathy Spinal stenosis [...] Marie DO CHEMISTRY Final Result [facility] [address] [place] [address], [facility] [address] [place] [address] * (ABNORMAL) LIPID PANEL W REFLEX MEASURED LDL (08/23/2024 2:17 PM CDT) [facility] Signature CHOLESTEROL, TOTAL 201(H) <200 [...] LDL-C. Rodri CASILLAS et al. СВЕТЛАНА. 2013;310(19): 2381-5001 (http://education.[employer]/faq/YIH333) CHOL/HDLC RATIO 3.1 <5.0 (calc) [facility] NON HDL CHOLESTEROL 136(H) <130 mg/dL (calc) [facility] Comment: For patients with diabetes plus 1 major ASCVD risk factor, treating to a non-HDL-C goal of <100 mg/dL (LDL-C of <70 mg/dL) is considered a therapeutic option. Blood BLOOD SPECIMEN / Unknown 08/23/2024 2:17 PM CDT 08/23/2024 2:18 PM CDT us Ananda Aj DO CHEMISTRY Final Result [facility] [address] [place] [address], [facility] [address] [place] [address] * (ABNORMAL) BASIC METABOLIC PANEL (08/23/2024 2:17 PM CDT) GLUCOSE 152(H) 65 - 99 mg/dL [facility] Comment: Fasting reference interval For someone without known diabetes, a glucose value >125 mg/dL indicates that they may have diabetes and this should be confirmed with a follow-up test. UREA NITROGEN (BUN) 19 7 - 25 mg/dL [facility] CREATININE 0.77 0.60 - 1.00 mg/dL [facility] EGFR 80 > OR = 60 mL/min/1. 73m2 [facility] BUN/CREATININE RATIO SEE NOTE: 6 - 22 (calc) [facility] Comment: Not Reported: BUN and Creatinine are within reference range. SODIUM 140 135 - 146 mmol/L [facility] POTASSIUM 4.8 3.5 - 5.3 mmol/L [facility] CHLORIDE 100 98 - 110 mmol/L [facility] CARBON DIOXIDE 31 20 - 32 mmol/L [facility] ELECTROLYTE BALANCE 9 7 - 17 mmol/L (calc) [facility] CALCIUM 10.3 8.6 - 10.4 mg/dL [facility] Blood BLOOD SPECIMEN / Unknown 08/23/2024 2:17 PM CDT 08/23/2024 2:18 PM CDT Ananda Aj DO CHEMISTRY Final Result [employer] [facility] [address] [place] [address], [facility] [address] [place] [address] * (ABNORMAL) POCT Hemoglobin A1C Monitoring (08/23/2024 2:16 PM CDT) Pathologist [facility] POC HEMOGLOBIN A1C 6.8(H) <6.0 % OF TOTAL HGB [facility] Comment: Any point of care results exhibiting inconsistency with the patient's clinical status should be repeated using a different testing method. Blood BLOOD SPECIMEN / Unknown 08/23/2024 2:16 PM CDT 08/23/2024 2:16 PM CDT Letiluann Villalobosjoaquín CHEMISTRY Final Result [facility] [address] [place] [address], [facility] [address] [place] [address] * [place] NJX DX/THER SBST INTRLMNR LMBR/SAC W/IMG GDN (08/14/2024 12:00 AM CDT) Nick Finch MD PB - NERVOUS SYSTEM SERVIC ES Final Result * MR SPINE LUMBAR WO (06/25/2024 2:12 PM BAND BOOKER) Anatomical Region Laterality Modality Spine, LUMBAR SPINE Magnetic Res onance 06/25/2024 3:17 PM BAND BOOKER Impressions 06/25/2024 3:17 PM BAND BOOKER 1. Normal alignment. No fractures. 2. At L1-2, disc degeneration. Small central disc extrusion. No spinal canal or neural foraminal narrowing. 3. At L4-5, mild narrowing of the spinal canal. 4. No spinal canal or neural foraminal narrowing at the remaining levels Dictated by Ruiz Hills MD @ 06/25/2024 3:17:52 PM (Electronically Signed) Narrative 06/25/2024 3:17 PM BAND BOOKER For Patients: As a result of the [...] richard Non-React richard 02/22/2019 5:30 PM CDT [facility] Comment:Antibodies to HCV no t detected; does not exclude the possibility of exposure to HCV. Blood BLOOD SPECIMEN / Unknown Venipuncture / Unknown 02/22/2019 9:30 AM CDT 02/22/2019 9:36 AM CDT Natty King MD SEND OUTS Final Result [facility] [address] [place] [address], [place] * XR DXA BONE DENSITY 2 SITES AXIAL [93016.1] (08/25/2017 10:54 AM CDT) Anatomical Region Laterality Modality Spine, HIPS, HIPL, HIPR Other Natty King MD DEXA Final Result from Last 3 Months or Most Recently Relevant to Health Maintenance Insurance [employer] [place] BLUE MR PB ONLY MEDICARE PART B HB ONLY [employer] [place] BLUE HB ONLY MEDICARE PART A HB ONLY [facility] Retellity Care Teams Hand Printed Circuit Board Assembler Relationship Specialty Start Date End Date Ananda Aj DO [address] [place] [address] PCP - General Family Practice 10/20/22 Nick Finch MD [address] [place] [address] Sports Medicine - Family Medicine 01/14/22
== END 2024-09-05 15:16 | disposition home or self-care (01) ==
PROVIDERS: Emergency Provider Emergency Medicine Emergency Medical Services; PCP Student in an Organized Health Care Education/Training Program
DX: M25.511 Pain in right shoulder (principal)
CPT/HCPCS: 20610; 73030; 99283; 99284

== ENCOUNTER 2025-03-26 08:14 | Outpatient (CLI) | payer MEDICARE, BC, SELFPAY | END 2025-03-26 08:15 | disposition home or self-care (01) | LOC: INJ CL 08:15 | PROVIDERS: PCP Student in an Organized Health Care Education/Training Program; Visit Provider Family Medicine | DX: M54.16 Radiculopathy, lumbar region (principal); M51.369 Other intervertebral disc degeneration, lumbar region without mention of lumbar back pain or lower extremity pain | CPT/HCPCS: 62323; Q9966 ==